=== PATIENT | female | born 1970 | race Two or more races ===

== ENCOUNTER 2024-10-10 07:41 | Emergency (ER) | payer OTHER ==
[~2024-10-10] VITALS: Ht 160 cm; Wt 46.3 kg
[2024-10-10 08:45] VITALS: BP 126/80; O2SAT 100
[2024-10-10] MEDS ORDERED: ACETAMINOPHEN 500 MG GEL..CAP PO ONE (09:39)
[2024-10-10 11:02] LABS: HEMOGLOBIN 13.6 g/dL (12.0-15.00); MEAN CELL VOLUME 93.9 fL (80.00-100.00); MEAN CORPUSCULAR HEMOGLOBIN 31.2 pg (27.00-32.0); MEAN CORPUSCULAR HGB CONC 33.2 g/dl (32.0-36.0); PLATELET COUNT 280 K/uL (150-450); RED BLOOD COUNT 4.37 M/uL (4.00-6.00); RED CELL DISTRIBUTION WIDTH 12.6 % (11.5-14.5)
== END 2024-10-10 13:10 | disposition home or self-care (01) ==
LOC: ER 07:43
PROVIDERS: General Practice
DX: R51.9 Headache, unspecified (principal); Z20.822 Contact with and (suspected) exposure to COVID-19